=== PATIENT | male | born 1970 | race Caucasian/White ===

== ENCOUNTER 2018-06-07 20:25 | Emergency (ER) | payer OTHER ==
[~2018-06-07] VITALS: Ht 167.6 cm; Wt 96.8 kg
[2018-06-07 20:27] VITALS: BP 145/101
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
--- NOTE | 2018-06-07 20:37 | NUR ---
PT TAKEN TO BED 4
--- NOTE | 2018-06-07 21:04 | NUR ---
FELIZ JOAQUIN AT BEDSIDE
--- NOTE | 2018-06-07 21:12 | NUR ---
X-RAY AT BEDSIDE.
[2018-06-07] MEDS ORDERED: SULFAMETH/TRIMETH DS 800/160MG 1 TAB PO ONE (21:45)
[2018-06-07] MEDS ORDERED: BACITRACIN OINT 500 UNITS/GM PKT TP ONE (21:45)
[2018-06-07 22:16] VITALS: BP 140/95
== END 2018-06-07 22:09 | disposition home or self-care (01) ==
LOC: MED 20:25
DX: S61.211D Laceration without foreign body of left index finger without damage to nail, subsequent encounter (principal); L03.114 Cellulitis of left upper limb; Z88.0 Allergy status to penicillin; W29.8XXD Contact with other powered hand tools and household machinery, subsequent encounter
CPT/HCPCS: 29130; 73130; 99283; Q0092